=== PATIENT | female | born 1945 | race American Indian/Alaskan Native ===

== ENCOUNTER 2017-06-05 12:44 | Outpatient (CLI) | payer MEDICARE ==
--- NOTE | 2017-06-05 18:44 | XRay Report ---
FINAL REPORT EXAM: XR KNEE BILAT 4+V HISTORY: BILATERAL KNEE PAIN TECHNIQUE: Bilateral knees 8 views PRIORS: None. FINDINGS: There is severe bilateral tibiofemoral joint space narrowing with narrowing at the patellofemoral femoral joint space. There is superior migration of the patella. Prominent marginal osteophytes are present. No acute fracture identified. 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
== END 2017-06-05 12:45 | disposition home or self-care (01) ==
LOC: SPVIMAG 12:44
PROVIDERS: ATTEND Orthopaedic Surgery Sports Medicine
DX: M17.0 Bilateral primary osteoarthritis of knee (principal)